=== PATIENT | female | born 1940 | race Caucasian/White ===

== ENCOUNTER 2017-01-12 12:30 | Emergency (ER) | payer OTHER, MEDICARE ==
[~2017-01-12] VITALS: Ht 154.9 cm; Wt 54.4 kg
[~2017-01-12 12:30] MED LIST: AMLODIPINE BESY10 MG PO; LEVOTHYROXIN0.088 M1 PO; LISINOPRIL40 MG PO; LYRICA75 MG PO; NEXIUM 40MG40 MG PO; SIMVASTATIN20 MG PO; VITAMIN D1000 IU PO
[2017-01-12 12:35] VITALS: BP 146/94
--- NOTE | 2017-01-12 13:07 | ED GENERAL ADULT ---
History of Present Illness General Chief Complaint: General Adult Stated Complaint: LOW BLD SUGAR Source: patient, family, EMS Exam Limitations: poor historian Vital Signs & Intake/Output Vital Signs & Intake/Output Vital Signs Date Time Temp Pulse Resp B/P Pulse O2 O2 Flow FiO2 Ox Delivery Rate 01/12 1235 97.2 82 20 146/94 100 Room Air ED Intake and Output 01/13 0000 01/12 1200 Intake Total Output Total Balance Patient 120 lb Weight Allergies Coded Allergies: amoxicillin (Intermediate, UNKNOWN 01/12/17) aspirin (Intermediate, EYE SWELLING 01/12/17) codeine (Mild, HIVES 01/12/17) cefuroxime (From CEFTIN) (UNKNOWN 01/12/17) Uncoded Allergies: OPIOID (UNKNOWN 01/12/17) Reconcile Medications Albuterol Sulfate (Proair Hfa) 90 MCG HFA.AER.AD 2 PUF INH Q4-6 PRN PRN COPD (Reported) Alendronate Sodium 70 MG TABLET 1 TAB PO QW BONE HEALTH (Reported) in the morning, at least 30 minutes before the first food, beverage, or medication of the day Amlodipine Besylate 5 MG TABLET 1 TAB PO BID HEART (Reported) Cholecalciferol (Vitamin D3) 1,000 UNIT TABLET 1,000 PO BID HEALTH (Reported) Clopidogrel Bisulfate (Clopidogrel) 75 MG TABLET 1 TAB PO DAILY HEART HEALTH (Reported) Cyanocobalamin (Vitamin B-12) 1,000 MCG TABLET 1 TAB PO DAILY VITAMINE ( Reported) Esomeprazole (Nexium) 40 MG CAPSULE.DR 40 MG PO BID GERD (Reported) Fluconazole (Diflucan) 150 MG TABLET 1 TAB PO ONCE A WEEK INFECTION (Reported ) Fluticasone Propionate 50 MCG/ACTUATION SPRAY.SUSP 2 SPRAY NASB DAILY COPD ( Reported) Insulin Aspart, Recombinant (Novolog Flexpen) 100 UNIT/ML INSULN.PEN DM ( Reported) Insulin Detemir (Levemir Flextouch) 100 UNIT/ML (3 ML) INSULN.PEN 12 UNIT SC BID DM (Reported) Levothyroxine Sodium 88 MCG TABLET 1 TAB PO DAILY THYROID HEALTH (Reported) Lisinopril 40 MG TABLET 40 MG PO DAILY BP (Reported) Pregabalin (Lyrica) 75 MG CAPSULE 1 CAP PO 4 TIMES/DAY PAIN (Reported) Simvastatin (Zocor) 20 MG TAB 20 MG PO DAILY HLD (Reported) Tiotropium [place] (Spiriva) 18 MCG CAP.W.DEV 1 CAP INH DAILY COPD (Reported) Triage Note: PT BIBA FROM HOME S/P AMS WITH BLOOD SUGAR 58. 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 PT HAS PREHOSPITAL IV'S LFA AND RFA. PT ALERT AND ORIENTED ON ARRIVAL TO ER. DENIES ANY PAIN. CLOTHING NOTED TO BE WET, DAUGHTER STATES SHE SPILLED WATER ON HER. DAUGHTER ALSO STATES THAT SHE GETS SHAKEY AND COLD "SEIZURE LIKE" ACTIVITY WHEN EVER SHE GETS IVF. PT CHANGED OUT OF WET CLOTHES AND WARM BLANKETS APPLIED. DR HARRIS INTO EVALUATE PATIENT ON ARRIVAL TO ER. Triage Nurses Notes Reviewed? yes Onset: Abrupt Duration: hour(s): Timing: recent history HPI: 01/12/17 1 PM 76-year-old female presents to the emergency department for hypoglycemic episode. The patient was in her usual state of health until this morning when she did not wake up. Paramedics were called and found her sugar to be in the 40s. She was given D10 the field, and her glucose came up and her symptoms improved. The onset of the symptoms was abrupt, the duration was just this morning, the severity was .significant as her symptoms required her to come to the emergency department for care. Now according to the daughter she is at her baseline mental status. She does have tremors but this is at baseline. She does take Lyrica for this. Past History Travel History Traveled to [place] past 21 day No Medical History Any Pertinent Medical History? 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 No Review of Systems Review of Systems Constitutional: Denies: fever. EENTM: Denies: visual changes. Respiratory: Denies: short of breath. Cardiovascular: Denies: chest pain. GI: Denies: abdominal pain. Genitourinary: Reports: no symptoms. Musculoskeletal: Reports: no symptoms. Skin: Reports: no symptoms. Neurological/Psychological: Reports: no symptoms. Hematologic/Endocrine: Reports: no symptoms. Physical Exam Physical Exam General Appearance: alert, awake, anxious, mild distress Head: atraumatic, normal appearance Eyes: Bilateral: normal appearance, PERRL, EOMI. Ears, Nose, Throat: normal pharynx, normal ENT inspection Neck: normal inspection, supple, full range of motion Respiratory: normal breath sounds, chest non-tender, no respiratory distress Cardiovascular: regular rate/rhythm Peripheral Pulses: 4+ radial (R), 4+ radial (L) Gastrointestinal: non-tender Back: normal range of motion Extremities: normal range of motion Neurologic/Psych: no motor/sensory deficits, awake, alert, oriented x 3, tremors Skin: intact, normal color, warm/dry Core Measures ACS in differential dx? No CVA/TIA Diagnosis: No Severe Sepsis Present: No Septic Shock Present: No Progress Differential Diagnoses I considered the following diagnoses in my evaluation of the patient: [ CVA, TIA , hypoglycemia, alcohol withdrawal, adverse drug reaction] Plan of Care: Orders Procedure Date/time Status Heart Healthy Diet 01/12 D Active TROPONIN LEVEL 01/12 1247 Complete COMPREHENSIVE METABOLIC PANEL 01/12 1247 Complete CBC WITHOUT DIFFERENTIAL 01/12 1247 Complete EKG 01/12 1247 Active Laboratory Tests 01/12/17 1311: Anion Gap 6, Estimated GFR 54 L, BUN/Creatinine Ratio 16.0, Glucose 245 H, Calcium 9.5, Total Bilirubin 0.4, AST 15, ALT 27, Alkaline Phosphatase 74, Troponin I < 0.01, Total Protein 6.9, Albumin 3.9, Globulin 3.0, Albumin/ Globulin Ratio 1.3, CBC w Diff MAN DIFF ORDERED, RBC 3.78 L, MCV 91.2, MCH 30.8 , RDW 13.4, MPV 7.9, Gran % 75.5 H, Lymphocytes % 18.7 L, Monocytes % 4.8, Eosinophils % 0.3, Basophils % 0.7, Absolute Granulocytes 4.4, Absolute Lymphocytes 1.1 L, Absolute Monocytes 0.3, Absolute Eosinophils 0, Absolute Basophils 0, Platelet Estimate VERIFIED BY SMEAR, Normocytic RBCs VERIFIED, Normochromic RBCs VERIFIED, PUBS MCHC 33.8 Initial ED EKG: NSR, poor R-wave progression Prior EKG: unchanged Comments: head CT shows no acute changes neurological exam was repeated and is normal she was given her Lyrica for the tremors Departure Departure Disposition: HOME OR SELF CARE Condition: Stable Clinical Impression Primary Impression: Hypoglycemia Referrals: DOLLY FREDERICK MD (PCP/Family) Departure Forms: Customer Survey General Discharge Information Comments Her medications include Plavix, Lyrica, lisinopril, amlodipine, levothyroxine, simvastatin, she is currently on insulin Levemir 12 units at 8 AM 6 units at 8 PM and also NovoLog sliding scale as needed she is also on albuterol and Spiriva for her COPD. 01/12/17 3 PM She is awake alert oriented 3. She tolerated a meal tray, labs and CT scan are unremarkable. She will be discharged and follow-up with her doctor on Sunday. she was told to check her sugar at least one hour prior to bedtime. Critical Care Note Critical Care Note Critical Care Time: 30-74 min
[2017-01-12] MEDS ORDERED: CLOPIDOGREL75 M1 PO (13:10)
[2017-01-12] MEDS ORDERED: LYRICA75 M1 PO (13:15)
[2017-01-12] MEDS ORDERED: LEVOTHYROXINE88 MCG PO (13:17)
[2017-01-12] MEDS ORDERED: AMLODIPINE BESYL5 M1 PO (13:17)
[2017-01-12] MEDS ORDERED: DIFLUCAN150 M1 PO (13:20)
[2017-01-12 13:27] LABS: ABSOLUTE BASOPHIL COUNT 0 /CUMM (0.0-0.2); ABSOLUTE EOSINOPHIL COUNT 0 /CUMM (0.0-0.7); ABSOLUTE GRANULOCYTE CT 4.4 /CUMM (1.4-6.5); ABSOLUTE LYMPH COUNT 1.1 /CUMM (1.2-3.4); ABSOLUTE MONOCYTE COUNT 0.3 /CUMM (0.10-0.60); BASOPHIL % 0.7 % (0.0-2.0); EOSINOPHIL % 0.3 % (0-5); GRANULOCYTE % 75.5 % (42.2-75.2); HEMATOCRIT 34.5 % (37-47); MEAN CORPUSCULAR HGB 30.8 PG (27.0-31.0); MEAN CORPUSCULAR HGB CONC 33.8 G/DL (33.0-37.0); MEAN CORPUSCULAR VOLUME 91.2 FL (81.0-99.0); MEAN PLATELET VOLUME 7.9 FL (7.4-10.4); PLATELET COUNT 317 /CUMM (130-400); RBC DISTRIBUTION WIDTH 13.4 % (11.5-14.5); RED BLOOD CELL CT 3.78 /CUMM (4.20-5.40); WHITE BLOOD CELL COUNT 5.8 /CUMM (4.8-10.8)
--- NOTE | 2017-01-12 13:52 | CT SCAN REPORT ---
EXAMINATION: CT HEAD WITHOUT CONTRAST CLINICAL INFORMATION: Altered mental status. COMPARISON: Head CT dated 06/04/2012 TECHNIQUE: Contiguous axial imaging was performed from the skull base to vertex without intravenous administration of contrast. DLP: 529 mGy-cm FINDINGS: There is no evidence of acute intracranial hemorrhage or territorial infarction. No abnormal mass effect or midline shift is seen. Avilez to white matter differentiation is well preserved. No extra-axial fluid collections are identified. There is moderate generalized prominence of the ventricles, sulci, and extra-axial CSF spaces and minor T2 prolongation in the periventricular regions. This is fairly similar to 2012. No acute osseous abnormalities are evident. The imaged paranasal sinuses are clear. The mastoid air cells and middle ear cavities are clear. The right mastoid air cells are hypopneumatized. No acute osseous abnormalities are evident. There have been bilateral ocular lens extractions. The patient is a potential as. IMPRESSION: No acute intracranial pathology. Stable moderate generalized volume loss relative to 2012.
[2017-01-12] MEDS ORDERED: ALENDRONATE SOD70 M2 PO (13:55)
[2017-01-12] MEDS ORDERED: LEVEMIR FL100 UNIT/1 SC (13:57)
[2017-01-12] MEDS ORDERED: NOVOLOG FL100 UNIT/1 SC (13:58)
[2017-01-12] MEDS ORDERED: VITAMIN B-121000 MC3 PO (13:59)
[2017-01-12] MEDS ORDERED: SPIRIVA18 MCG INH (13:59)
[2017-01-12] MEDS ORDERED: FLUTICASONE PRO16 GM NASB (13:59)
[2017-01-12] MEDS ORDERED: PROAIR HFA8.5 GM INH (14:00)
== END 2017-01-12 15:15 ==
LOC: ERH 12:30
PROVIDERS: Emergency Medicine
DX: E11.649 Type 2 diabetes mellitus with hypoglycemia without coma (principal)
CPT/HCPCS: 93005; 93010

== ENCOUNTER 2017-02-25 13:37 | Emergency (ER) | payer OTHER, MEDICARE ==
[~2017-02-25] VITALS: Ht 154.9 cm; Wt 59.0 kg
[~2017-02-25 13:37] MED LIST changes: +ALENDRONATE SOD70 M2 PO; +AMLODIPINE BESYL5 M1 PO; +CLOPIDOGREL75 M1 PO; +DIFLUCAN150 M1 PO; +FLUTICASONE PRO16 GM NASB; +LEVEMIR FL100 UNIT/1 SC; +LEVOTHYROXINE88 MCG PO; +LYRICA75 M1 PO; +NOVOLOG FL100 UNIT/1 SC; +PROAIR HFA8.5 GM INH; +SPIRIVA18 MCG INH; +VITAMIN B-121000 MC3 PO
--- NOTE | 2017-02-25 13:51 | ED AMS/SEIZURE/WEAK/DIZZY ---
History of Present Illness General Chief Complaint: General Adult Stated Complaint: BIBA FOR HYPOGLYCEMIA Source: patient, old records, EMS Exam Limitations: no limitations Vital Signs & Intake/Output Vital Signs & Intake/Output Vital Signs Date Time Temp Pulse Resp B/P B/P Pulse O2 O2 Flow FiO2 Mean Ox Delivery Rate 02/25 1527 98.1 84 15 145/74 100 Room Air 02/25 1501 96.5 02/25 1340 94.0 80 20 158/69 96 Room Air Allergies Coded Allergies: amoxicillin (Intermediate, UNKNOWN 01/12/17) aspirin (Intermediate, EYE SWELLING 01/12/17) codeine (Mild, HIVES 01/12/17) cefuroxime (From CEFTIN) (UNKNOWN 01/12/17) Uncoded Allergies: OPIOID (UNKNOWN 01/12/17) Reconcile Medications Albuterol Sulfate (Proair Hfa) 90 MCG HFA.AER.AD 2 PUF INH Q4-6 PRN PRN COPD (Reported) Alendronate Sodium 70 MG TABLET 1 TAB PO QW BONE HEALTH (Reported) in the morning, at least 30 minutes before the first food, beverage, or medication of the day Amlodipine Besylate 5 MG TABLET 1 TAB PO BID HEART (Reported) Cholecalciferol (Vitamin D3) 1,000 UNIT TABLET 1,000 PO BID HEALTH (Reported) Clopidogrel Bisulfate (Clopidogrel) 75 MG TABLET 1 TAB PO DAILY HEART HEALTH (Reported) Cyanocobalamin (Vitamin B-12) 1,000 MCG TABLET 1 TAB PO DAILY VITAMINE ( Reported) Esomeprazole (Nexium) 40 MG CAPSULE.DR 40 MG PO BID GERD (Reported) Fluconazole (Diflucan) 150 MG TABLET 1 TAB PO ONCE A WEEK INFECTION (Reported ) Fluticasone Propionate 50 MCG/ACTUATION SPRAY.SUSP 2 SPRAY NASB DAILY COPD ( Reported) Insulin Aspart, Recombinant (Novolog Flexpen) 100 UNIT/ML INSULN.PEN DM ( Reported) Insulin Detemir (Levemir Flextouch) 100 UNIT/ML (3 ML) INSULN.PEN 12 UNIT SC BID DM (Reported) Levothyroxine Sodium 88 MCG TABLET 1 TAB PO DAILY THYROID HEALTH (Reported) Lisinopril 40 MG TABLET 40 MG PO DAILY BP (Reported) Pregabalin (Lyrica) 75 MG CAPSULE 1 CAP PO 4 TIMES/DAY PAIN (Reported) Simvastatin (Zocor) 20 MG TAB 20 MG PO DAILY HLD (Reported) Tiotropium [place] (Spiriva) 18 MCG CAP.W.DEV 1 CAP INH DAILY COPD (Reported) Triage Note: . Triage Nurses Notes Reviewed? yes Onset: Morning Duration: better, unknown duration Timing: recent history Injury Environment: home Severity: severe Modifying Factors: Improves With: medication. Associated Symptoms: diaphoresis LMP (ages 10-50): post menopausal : No Patient currently breastfeeds: No HPI: Patient took normal insulin in the morning a breakfast felt tired and slept through lunch. She was found with decreased responsiveness unable to arouse. EMS found blood sugar 38. They administered D10 with improvement in mentation. She denies fever chills nausea vomiting diarrhea abdominal pain chest pain shortness of breath headache dysuria rash bleeding. Past History Travel History Traveled to [place] past 21 day No Medical History Any Pertinent Medical History? see below for history Neurological: NONE EENT: NONE Cardiovascular: hypertension, hyperlipidemia Respiratory: COPD Gastrointestinal: GERD, GASTROPARESIS LACTOSE INTOLLERANT Hepatic: NONE Renal: NONE Musculoskeletal: osteoporosis, CONNECTIVE TISSUE DISEASE Psychiatric: NONE Endocrine: diabetes, hypothyroidism Blood Disorders: NONE Cancer(s): NONE LONE LEAD LINEMAN/Reproductive: yeast infections History of MRSA: No History of VRE: No History of CDIFF: No Surgical History Surgical History: non-contributory Psychosocial History Who do you live with Daughter Services at Home None What is your primary language [place] Family History Hx Contributory? No Review of Systems Review of Systems Constitutional: Reports: no symptoms. EENTM: Reports: no symptoms. Respiratory: Reports: no symptoms. Cardiovascular: Reports: no symptoms. GI: Reports: no symptoms. Genitourinary: Reports: no symptoms. Musculoskeletal: Reports: no symptoms. Skin: Reports: no symptoms. Neurological/Psychological: Reports: see HPI, cognitive dysfunction, confusion. Hematologic/Endocrine: Reports: no symptoms. Immunologic/Allergic: Reports: no symptoms. All Other Systems: Reviewed and Negative Physical Exam Physical Exam General Appearance: well developed/nourished, alert, awake, anxious, moderate distress Head: atraumatic, normal appearance Eyes: Bilateral: normal appearance, PERRL, EOMI. Ears, Nose, Throat: normal pharynx, normal ENT inspection Neck: normal inspection, supple, full range of motion, no midline tenderness Respiratory: normal breath sounds, chest non-tender, no respiratory distress, quiet respiration, lungs clear Cardiovascular: regular rate/rhythm, normal peripheral pulses, norml femoral pulses equa Peripheral Pulses: 4+ carotid (R), 4+ carotid (L) Gastrointestinal: normal bowel sounds, soft, non-tender, no organomegaly Back: normal inspection, normal range of motion Extremities: normal range of motion, no ligament instability Neurologic/Psych: no motor/sensory deficits, awake, alert, oriented x 3, normal gait, normal mood/affect, visualizer II-XII nml as tested Reflexes: 2+: bicep (R), bicep (L). Skin: intact, normal color, warm/dry Lymphatic: no anterior cervical bella Core Measures ACS in differential dx? No CVA/TIA Diagnosis: No Severe Sepsis Present: No Septic Shock Present: No Progress Differential Diagnosis: hypoglycemia Plan of Care: Orders Procedure Date/time Status Regular Diet 02/25 D Active Initial ED EKG: none Departure Departure Time of Disposition: 1516 Disposition: HOME OR SELF CARE Condition: Stable Clinical Impression Primary Impression: Hypoglycemia due to type 1 diabetes mellitus Referrals: DOLLY FREDERICK MD (PCP/Family) Departure Forms: Customer Survey General Discharge Information
[2017-02-25 15:27] VITALS: BP 145/74
== END 2017-02-25 15:27 ==
LOC: ERH 13:37
DX: E10.649 Type 1 diabetes mellitus with hypoglycemia without coma (principal)